=== PATIENT | female | born 1980 | race Caucasian/White ===

== ENCOUNTER → 2024-08-13 18:22 | Outpatient (BNV) | payer OTHER, SELFPAY | PROVIDERS: Admitting Provider Psychiatry & Neurology Psychiatry; Visit Provider Registered Nurse | DX: F60.3 Borderline personality disorder (principal); F25.1 Schizoaffective disorder, depressive type | CPT/HCPCS: 90792; 99231; 99232 ==

== ENCOUNTER → 2024-08-13 18:22 | Outpatient (BNV) | payer OTHER, SELFPAY | PROVIDERS: Admitting Provider Psychiatry & Neurology Psychiatry; Visit Provider Nurse Practitioner Family | DX: Z00.8 Encounter for other general examination (principal) | CPT/HCPCS: 99499 ==